=== PATIENT | male | born 1975 | race Caucasian/White ===

== ENCOUNTER 2016-07-17 12:14 | Observation (INO) ==
--- NOTE | 2016-07-17 12:27 | Emergency Department Note ---
Disposition Clinical Impression: Acute kidney injury (nontraumatic), Dehydration, Orthostatic hypotension Disposition: Admitted As Inpatient Referrals: Mary Leon CNP [Primary Care Provider] - General Adult HPI - General Stated complaint: light headed, dizzy, SOB, low BP Time Seen by Provider: 07/17/16 12:27 Source: patient Mode of arrival: private vehicle Limitations: no limitations Nursing Notes Reviewed: Yes Vital Signs Reviewed: Yes - History of Present Illness HPI Narrative: 41-year-old white male presents to emergency department complaining that he is dizzy and lightheaded. He says that 2 weeks ago just prior to an oral surgery in which he had his entire dentition removed he had his blood pressure medicine metoprolol, changed to lisinopril by his primary care provider. He says that since his surgery he has not really been eating or drinking like he normally would do. 4 days ago he started having the feeling that he was lightheaded and dizzy. He also notes some nausea. He has had no fever and no chills, he denies any cough or cold symptoms. He has had no vomiting or diarrhea. - Related Data Home Medications Medication Instructions Recorded Confirmed Loratadine [Claritin] 10 mg PO DAILY 10/03/15 07/17/16 Quetiapine Fumarate [Seroquel] 100 mg PO DAILY 10/03/15 07/17/16 ClonazePAM [Klonopin] 1 mg PO TID PRN 11/17/15 07/17/16 Gabapentin [Neurontin] 800 mg PO QID 11/17/15 07/17/16 Metoprolol [Lopressor] 25 mg PO BID 11/17/15 07/17/16 Omeprazole [PriLOSEC] 20 mg PO DAILY 11/17/15 07/17/16 Quetiapine Fumarate [Seroquel] 400 mg PO DAILY 11/17/15 07/17/16 Previous Rx's Medication Instructions Recorded Sucralfate [Carafate] 1 gm PO QID #160 mls 01/26/16 Allergies Allergy/AdvReac Type Severity Reaction Status Date / Time No Known Allergies Allergy Verified 10/03/15 15:29 All systems ED: reviewed and negative except as stated. Constitutional: Reports: as per HPI, weakness, other (Decrease in intake) Eyes: Denies: eye pain, eye discharge, vision change ENT ED: Denies: ear pain, throat pain, dental pain, hearing loss, epistaxis, congestion, dysphagia Cardiovascular: Denies: chest pain, palpitations, dyspnea on exertion, edema, syncope Respiratory: Denies: cough, dyspnea, wheezes, hemoptysis, stridor Gastrointestinal: Reports: as per HPI, nausea. Denies: vomiting, diarrhea Genitourinary: Denies: urgency, dysuria, frequency, hematuria Musculoskeletal: Denies: back pain, neck pain, arthralgia, myalgia Integumentary: Denies: rash, abrasion, lesions Neurological: Reports: as per HPI, weakness, vertigo. Denies: headache Psychiatric: Denies: anxiety, depression, suicidal thoughts, homicidal thoughts , auditory hallucinations, visual hallucinations Endocrine: Denies: fatigue Past Medical History - Past Medical History Medical history: Reports: arthritis, hypertension, other Surgical history: Reports: no surgical history Psychiatric history: Reports: anxiety, depression - Social History Smoking Status: Never smoker Smokeless Tobacco Status: No Alcohol use: Reports: none Drug use: Reports: none Physical Exam - General Limitations: no limitations General appearance: alert, in no apparent distress - Head Head exam: atraumatic, normocephalic, normal inspection - Eye Eye exam: Present: normal appearance, PERRL, EOMI. Absent: nystagmus - ENT ENT exam: normal exam, normal oropharynx, mucous membranes moist, other ( Edentulous) - Neck Neck exam: Present: normal inspection, full ROM, trachea midline - Chest Chest inspection: Present: normal inspection, symmetric chest wall rise - Respiratory Respiratory exam: Present: normal lung sounds bilaterally - Cardiovascular Cardiovascular exam: Present: regular rate, normal rhythm, normal heart sounds - Abdominal Exam Abdominal exam: Present: soft, Non-Tender. Absent: tenderness, distention, guarding, rebound, rigidity - Extremities Exam Extremities exam: Present: normal inspection, full ROM. Absent: tenderness, pedal edema - Back Exam Back exam: Present: normal inspection, full ROM. Absent: tenderness - Neurological Exam Neurological exam: Present: alert, oriented X3, CN II-XII intact. Absent: motor sensory deficit - Psychiatric Psychiatric exam: Present: normal affect, normal mood - Skin Skin exam: Present: warm, dry, intact, normal color Course Course Narrative: The patient remained stable throughout his emergency department stay. Orthostatic hypotension was indicated by orthostatic vital signs. The patient continued to have IV fluids throughout his emergency department stay. His heart rate reduced from the 130s to just over 100 prior to his admission. The patient will be sent to an observation bed for continued fluid resuscitation. Vital Signs Temperature 98.0 F 07/17/16 12:24 Pulse Rate 131 07/17/16 12:24 Respiratory Rate 16 07/17/16 12:24 Blood Pressure 114/68 07/17/16 12:24 O2 Sat by Pulse Oximetry 95 07/17/16 12:24 Temperature 98.0 F 07/17/16 12:24 Pulse Rate 109 07/17/16 14:21 Respiratory Rate 18 07/17/16 14:21 Blood Pressure 135/93 07/17/16 14:21 O2 Sat by Pulse Oximetry 93 L 07/17/16 14:21 Oxygen Delivery Oxygen Delivery Room Air Medical Decision Making - Lab Data Lab results reviewed: Yes I reviewed the patient's lab results. Result diagrams: 07/17/16 12:34 07/17/16 12:34 Lab Results 07/17/16 07/17/16 07/17/16 Range/Units 12:34 12:34 12:34 WBC 11.7 H (4.3-11.1) K/mcL RBC 5.16 (4.19-5.50) M/mcL Hgb 15.5 (12.9-16.9) g/dL Hct 44.3 (37.5-50.1) % MCV 85.9 (83.0-100.0) fL MCH 30.0 (28.0-33.3) pg MCHC 35.0 (31.6-35.5) g/dL RDW 12.8 (11.5-14.5) % Plt Count 363 (140-400) K/mcL MPV 9.1 L (9.4-12.4) fL Immature Gran % 0.5 (0-4) % Seg Neutrophils % 78.1 % Lymphocytes % 15.1 % Monocytes % 5.1 % Eosinophils % 0.9 % Basophils % 0.3 % Neutrophils # 9.1 H (1.6-8.9) K/mcL Lymphocytes # 1.8 (0.6-4.6) K/mcL Monocytes # 0.6 (0.0-1.3) K/mcL Eosinophils # 0.1 (0.0-0.6) K/mcL Basophils # 0.0 (0.0-0.2) K/mcL PT 11.9 (9.4-12.1) Seconds INR 1.1 Sodium 130 L (136-145) mEq/L Potassium 3.2 L (3.5-4.5) mEq/L Chloride 95 L (98-109) mEq/L Carbon Dioxide 18 L (19-29) mEq/L BUN 24 (8-26) mg/dL Creatinine 2.25 H (0.72-1.25) mg/dL Est GFR ( Amer) 39 L (> 60) Est GFR (Non-Af Amer) 32 L (> 60) BUN/Creatinine Ratio 11 (6-26) Glucose 180 H (70-99) mg/dL Calculated Osmolality 279 L (280-300) Calcium 9.3 (8.6-10.8) mg/dL Total Bilirubin 0.5 (0.2-1.2) mg/dL AST 13 (5-34) Units/L ALT 20 (0-55) Units/L Alkaline Phosphatase 93 (38-126) Units/L Troponin I (0-0.03) ng/mL Serum Total Protein 8.2 (6.0-8.3) g/dL Albumin 4.1 (3.5-5.0) g/dL Globulin 4.1 H (2.4-3.5) g/dL Albumin/Globulin Ratio 1.0 L (1.1-2.2) Urine Color (Yellow) Urine Clarity (Clear) Urine pH (5.0-8.0) pH Units Ur Specific Dalton (1.010-1.025) Urine Protein (Neg-Trace) mg/dL Urine Glucose (UA) (Normal) mg/dL Urine Ketones (Negative) mg/dL Urine Blood (Negative) Urine Nitrite (Negative) Urine Bilirubin (Negative) Urine Urobilinogen (Normal) mg/dL Ur Leukocyte Esterase (Negative) Urine Microscopic WBC Ur Squamous Epith Cells (None-Few) per lpf Amorphous Sediment (Few) Ur Culture Indicated? (NO) 07/17/16 07/17/16 Range/Units 12:34 12:39 WBC (4.3-11.1) K/mcL RBC (4.19-5.50) M/mcL Hgb (12.9-16.9) g/dL Hct (37.5-50.1) % MCV (83.0-100.0) fL MCH (28.0-33.3) pg MCHC (31.6-35.5) g/dL RDW (11.5-14.5) % Plt Count (140-400) K/mcL MPV (9.4-12.4) fL Immature Gran % (0-4) % Seg Neutrophils % % Lymphocytes % % Monocytes % % Eosinophils % % Basophils % % Neutrophils # (1.6-8.9) K/mcL Lymphocytes # (0.6-4.6) K/mcL Monocytes # (0.0-1.3) K/mcL Eosinophils # (0.0-0.6) K/mcL Basophils # (0.0-0.2) K/mcL PT (9.4-12.1) Seconds INR Sodium (136-145) mEq/L Potassium (3.5-4.5) mEq/L Chloride (98-109) mEq/L Carbon Dioxide (19-29) mEq/L BUN (8-26) mg/dL Creatinine (0.72-1.25) mg/dL Est GFR ( Amer) (> 60) Est GFR (Non-Af Amer) (> 60) BUN/Creatinine Ratio (6-26) Glucose (70-99) mg/dL Calculated Osmolality (280-300) Calcium (8.6-10.8) mg/dL Total Bilirubin (0.2-1.2) mg/dL AST (5-34) Units/L ALT (0-55) Units/L Alkaline Phosphatase (38-126) Units/L Troponin I 0.00 (0-0.03) ng/mL Serum Total Protein (6.0-8.3) g/dL Albumin (3.5-5.0) g/dL Globulin (2.4-3.5) g/dL Albumin/Globulin Ratio (1.1-2.2) Urine Color Yellow (Yellow) Urine Clarity Clear (Clear) Urine pH 5.0 (5.0-8.0) pH Units Ur Specific Dalton >= 1.030 H (1.010-1.025) Urine Protein 30 H (Neg-Trace) mg/dL Urine Glucose (UA) Normal (Normal) mg/dL Urine Ketones Negative (Negative) mg/dL Urine Blood Trace-lysed H (Negative) Urine Nitrite Negative (Negative) Urine Bilirubin Negative (Negative) Urine Urobilinogen Normal (Normal) mg/dL Ur Leukocyte Esterase Negative (Negative) Urine Microscopic WBC Test Not Performed Ur Squamous Epith Cells Few (None-Few) per lpf Amorphous Sediment Few (Few) Ur Culture Indicated? NO (NO) - EKG Data EKG #1 EKG results narrative: Twelve-lead EKG showed a sinus tachycardia rate of 131, normal axis, no ST elevation or depression appreciated.
[2016-07-17] MEDS ORDERED: Ondansetron 4 MG/2 ML VIAL IV ONE (12:36)
[2016-07-17] MEDS ORDERED: 0.9 % Sodium Chloride 1,000 ML IVC ONE ×2 (12:36→13:19)
[2016-07-17 12:53] LABS: Basophils % 0.3 %; Eosinophils # 0.1 K/mcL (0.0-0.6); Eosinophils % 0.9 %; Hematocrit 44.3 % (37.5-50.1); Hemoglobin 15.5 g/dL (12.9-16.9); Immature Granulocytes % 0.5 % (0-4); Lymphocytes # 1.8 K/mcL (0.6-4.6); Lymphocytes % 15.1 %; Mean Corpuscular Volume 85.9 fL (83.0-100.0); Mean Platelet Volume 9.1 fL (9.4-12.4); Monocytes # 0.6 K/mcL (0.0-1.3); Monocytes % 5.1 %; Neutrophils # 9.1 K/mcL (1.6-8.9); Platelet Count 363 K/mcL (140-400); Red Blood Count 5.16 M/mcL (4.19-5.50); Red Cell Distribution Width 12.8 % (11.5-14.5); Segmented Neutrophils % 78.1 %
[2016-07-17 12:54] LABS: Bilirubin,Urine Negative (Negative); Blood,Urine Trace-lysed (Negative); Clarity,Urine Clear (Clear); Color,Urine Yellow (Yellow); Glucose,Urine (UA) Normal (Normal); Ketones,Urine Negative (Negative); Leukocyte Esterase,Urine Negative (Negative); Nitrite,Urine Negative (Negative); Protein,Urine 30 mg/dL (Neg-Trace); Specific Gravity,Urine >= 1.030 (1.010-1.025); Urobilinogen,Urine Normal (Normal)
[2016-07-17 12:58] LABS: INR 1.1; Prothrombin Time 11.9 Seconds (9.4-12.1)
[2016-07-17 13:01] LABS: Amorphous Sediment,Urine Few (Few); Squamous Epithelial Cell,Urine Few per lpf (None-Few)
[2016-07-17 13:09] LABS: Albumin 4.1 g/dL (3.5-5.0); Bilirubin,Total 0.5 mg/dL (0.2-1.2); Calcium 9.3 mg/dL (8.6-10.8); Globulin 4.1 g/dL (2.4-3.5); Potassium 3.2 mEq/L (3.5-4.5); Total Protein 8.2 g/dL (6.0-8.3)
[2016-07-17] MEDS ORDERED: Naloxone 0.4 MG/ML INJ IVP PRN (16:02)
[2016-07-17] MEDS ORDERED: ClonazePAM 1 MG TABLET PO PRN (16:02)
[2016-07-17] MEDS ORDERED: Acetaminophen 325 MG TABLET PO PRN (16:02)
[2016-07-17] MEDS ORDERED: Ondansetron ODT 4 MG TAB.RAPDIS SL PRN (16:02)
[2016-07-17] MEDS: 0.9 % Sodium Chloride 1,000 ML IVC SCH (16:05)
[2016-07-17] MEDS ORDERED: NON-FORMULARY MEDICATION 1 EACH EACH (Gabapentin [Neurontin] 800 MG) PO SCH (17:00)
[2016-07-17] MEDS: Ibuprofen 400 MG TABLET PO PRN (17:53)
[2016-07-17] MEDS ORDERED: QUETIAPINE FUMARATE PO SCH (21:00)
[2016-07-18] MEDS: 0.9 % Sodium Chloride 1,000 ML IVC SCH ×2 (01:53→11:47)
[2016-07-18 05:48] LABS: Basophils # 0.1 K/mcL (0.0-0.2); Basophils % 0.6 %; Eosinophils # 0.2 K/mcL (0.0-0.6); Hematocrit 37.3 % (37.5-50.1); Hemoglobin 12.9 g/dL (12.9-16.9); Immature Granulocytes % 0.6 % (0-4); Lymphocytes # 2.8 K/mcL (0.6-4.6); Lymphocytes % 32.4 %; Mean Corpuscular HGB Conc 34.6 g/dL (31.6-35.5); Mean Corpuscular Hemoglobin 29.8 pg (28.0-33.3); Mean Corpuscular Volume 86.1 fL (83.0-100.0); Mean Platelet Volume 9.1 fL (9.4-12.4); Monocytes # 0.6 K/mcL (0.0-1.3); Monocytes % 6.9 %; Platelet Count 262 K/mcL (140-400); Red Blood Count 4.33 M/mcL (4.19-5.50); Red Cell Distribution Width 12.9 % (11.5-14.5); Segmented Neutrophils % 57.5 %
[2016-07-18 06:00] LABS: BUN/Creatinine Ratio 13 (6-26); Blood Urea Nitrogen 16 mg/dL (8-26); Calcium 8.7 mg/dL (8.6-10.8); Carbon Dioxide 21 mEq/L (19-29); Chloride 102 mEq/L (98-109); Glucose 93 mg/dL (70-99); Osmolality,Calculated 281 (280-300); Potassium 3.7 mEq/L (3.5-4.5); Sodium 135 mEq/L (136-145); eGFR For African Americans > 60 (> 60); eGFR For Non-African Americans > 60 (> 60)
[2016-07-18 07:39] VITALS: BP 137/73
[2016-07-18] MEDS ORDERED: Loratadine 10 MG TABLET PO SCH (09:00)
[2016-07-18] MEDS ORDERED: NON-FORMULARY MEDICATION 1 EACH EACH (Quetiapine Fumarate [Seroquel] 400 MG) PO SCH (09:00)
[2016-07-18] MEDS: Ibuprofen 400 MG TABLET PO PRN (10:14)
--- NOTE | 2016-07-18 12:25 | Discharge Summary ---
Date of Encounter: 07/18/16 Time of Encounter: 12:00 - Discharge Diagnosis (1) Dehydration Priority: Primary Status: Acute Comments: Patient is hydrated adequately and the potassium was corrected. BUN and creatinine are fine. Patient be discharged home today. - Discharge Medications Home Medications: Loratadine [Claritin] 10 mg PO DAILY 10/03/15 [History] Quetiapine Fumarate [Seroquel] 100 mg PO DAILY 10/03/15 [History] ClonazePAM [Klonopin] 1 mg PO TID PRN 11/17/15 [History] Gabapentin [Neurontin] 800 mg PO QID 11/17/15 [History] Metoprolol [Lopressor] 25 mg PO BID 11/17/15 [History] Omeprazole [PriLOSEC] 20 mg PO DAILY 11/17/15 [History] Quetiapine Fumarate [Seroquel] 400 mg PO DAILY 11/17/15 [History] Sucralfate [Carafate] 1 gm PO QID #160 mls 01/26/16 [Rx] Allergies/Adverse Reactions: Allergies No Known Allergies Allergy (Verified 10/03/15 15:29) Date of admission: 07/17/16 15:50 Primary care physician: Mary Leon CNP Discharging clinician: Massimo Vera Anticipated date of discharge: 07/18/16 - Patient Status Disposition: Home, Self-Care Condition: Good Functional capacity at discharge: independent ambulation Overall status at discharge: patient is back to baseline - Discharge Instructions Forms: ED Satisfaction Letter - Diet and Activity Activity: resume usual activities as tolerated Hospital course: Mr. Ayala is a 41 year old male I talked to the patient is significant other about eating and drinking given even if he does not feel like eating a lot of emphasizing needs to keep drinking fluids. He is to call the oral surgeon tomorrow. - Time Spent with Patient Total time spent providing and/or coordinating discharge services: Less than 30 minutes - Constitutional Vitals: Temp Pulse Resp BP Pulse Ox 98.8 F 103 18 137/73 97 07/18/16 07:00 07/18/16 07:00 07/18/16 07:00 07/18/16 07:00 07/18/16 07:00 - Head Head exam: Present: atraumatic, normal inspection, normocephalic - Neck Neck exam general surgery: Present: supple, trachea midline. Absent: lymphadenopathy - Respiratory Respiratory exam: Present: CTAB. Absent: accessory muscle use, rales, rhonchi, wheezes - Cardiovascular Cardiovascular exam: Present: RRR, +S1, +S2. Absent: diastolic murmur, gallop, rubs, systolic murmur - GI/Abdominal GI/Abdominal exam: Present: normal bowel sounds, soft, no peritoneal signs. Absent: distended, tenderness - VTE Documentation of Mechanical Device: Graduated compression elastic hosiery
--- NOTE | 2016-07-19 06:12 | Electrocardiograph Report ---
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
== END 2016-07-18 13:40 | disposition home or self-care (01) ==
LOC: INPGRE 12:14 → EMEROOGRE 12:14 → INPGRE 16:00
PROVIDERS: ADMIT Internal Medicine; ATTEND Internal Medicine